=== PATIENT | female | born 1950 | race Caucasian/White ===

== ENCOUNTER 2017-02-11 12:42 | Emergency (ER) | payer OTHER ==
[~2017-02-11] VITALS: Ht 157.5 cm; Wt 68.2 kg
--- NOTE | 2017-02-11 12:56 | ERD ---
ER Documentation Chief Complaint Chief Complaint Dizziness HPI The patient is a 66-year-old female, presenting to the ER because of acute near syncopal episode while she was running on a treadmill for approximately 15 minutes. Today is the first day that she went to the gym, she has been fasting today. She denies syncope, neck pain, chest pain, Chest pain with exertion/ vomiting/diaphoresis, dyspnea, abdominal pain, vomiting, dysuria, diarrhea. She does not smoke nor drink. She arrived to the ER for possible STEMI. She was treated with aspirin 150 mg p.o. by EMS Past medical history: Dyslipidemia Past surgical history: None ROS All systems reviewed and are negative except as per history of present illness. Allergies Allergies: Coded Allergies: No Known Allergy (Unverified , 02/11/17) Physical Exam Vitals Vital Signs Date Time Temp Pulse Resp B/P Pulse Ox O2 Delivery O2 Flow Rate FiO2 02/11/17 12:59 97.6 67 12 118/69 97 Physical Exam Const: No acute distress. Head: Atraumatic. Eyes: Normal Conjunctiva. ENT: Normal External Ears, Nose and Mouth. Neck: Full range of motion. No meningismus. Resp: Clear to auscultation bilaterally. Cardio: Regular rate and rhythm. Abd: Soft, non distended, normal bowel sounds, non tender. Skin: No petechiae or rashes. Back: No midline or flank tenderness. Ext: No cyanosis, or edema. Neur: Awake and alert. No focal deficit Psych: Normal Mood and Affect. Result Diagram: 02/11/17 1253 02/11/17 1253 Results 24 hrs Laboratory Tests Test 02/11/17 12:53 02/11/17 13:04 White Blood Count 6.410^3/ul Red Blood Count 4.0210^6/ul Hemoglobin 12.4g/dl Hematocrit 37.3% Mean Corpuscular Volume 92.8fl Mean Corpuscular Hemoglobin 30.8pg Mean Corpuscular Hemoglobin Concent 33.2g/dl Red Cell Distribution Width 12.8% Platelet Count 76033^3/UL Mean Platelet Volume 11.1fl Neutrophils % 51.5% Lymphocytes % 38.5% Monocytes % 7.1% Eosinophils % 1.9% Basophils % 0.8% Nucleated Red Blood Cells % 0.0/100WBC Neutrophils # 3.310^3/ul Lymphocytes # 2.510^3/ul Monocytes # 0.510^3/ul Eosinophils # 0.110^3/ul Basophils # 0.110^3/ul Nucleated Red Blood Cells # 0.010^3/ul Sodium Level 141mmol/L Potassium Level 4.3mmol/L Chloride Level 103mmol/L Carbon Dioxide Level 24mmol/L Anion Gap 18 Blood Urea Nitrogen 22mg/dl Creatinine 0.93mg/dl Glucose Level 123mg/dl Calcium Level 9.6mg/dl Troponin I < 0.012ng/ml Bedside Glucose 103mg/dL Current Medications Medications (Trade) Dose Ordered Sig/Pura Route PRN Reason Start Time Stop Time Status Last Admin Dose Admin Sodium Chloride (NS) 1,000 ml @ 1,000 mls/hr Q1H ONCE IV 02/11/17 13:00 02/11/17 13:59 DC 02/11/17 12:59 Procedures/MDM EKG: At 12:46 PM Read by emergency physician Rate/Rhythm: Normal Sinus Rhythm 68 beats/min QRS, ST, T-waves: No ST elevation, no T inversion Impression: Normal EKG EKG: At 2:13 PM Read by emergency physician Rate/Rhythm: Normal Sinus Rhythm 60 beats/min QRS, ST, T-waves: No ST elevation, no T inversion Impression: Normal EKG [place] [id number] Radiology Main Line: [phone] DIAGNOSTIC IMAGING REPORT Patient: BETY MARTIN : 1950 Age: 66 Sex: F [id number] DOS: 02/11/17 1249 Ordering MD: SHELLEY BAUGH MD Location: E/R Room/Bed: PROCEDURE: XR Chest. CLINICAL INDICATION: Chest pain TECHNIQUE: AP Portable chest. COMPARISON: None available FINDINGS: The soft tissues and bones are normal. No focal infiltrates, masses, or effusions are noted. The mediastinum and heart are remarkable for mild vascular calcifications of the thoracic aorta and normal size heart. No pneumothorax is present. IMPRESSION: 1. No radiographic evidence for acute cardiopulmonary disease. 2. Mild atherosclerotic vascular disease RPTAT: HDC .Stephanie Barakat MD, MD Date Time Electronically viewed and signed by .Stephanie Barakat MD, MD on 02/11/2017 14: 07 .C/ CC: SHELLEY BAUGH MD MEDICAL MAKING DECISION: The patient is a 76-year-old female, presenting with acute dizziness most likely due to acute dehydration and acute fasting. She was treated with 1 L normal saline for acute dehydration with good response. On multiple reevaluation, she felt well, denies any symptoms. The differential diagnoses considered include but are not limited to dehydration , TIA, electrolyte imbalance,central causes such as cerebellar infarct, cerebellar hemorrhage, cerebellar tumor, acoustic neuroma, peripheral causes such as benign positional vertigo, labyrinthitis, medication, Meniere's disease. Departure Diagnosis: Primary Impression: Dizziness Additional Impression: Dehydration Condition: Good Comments I discussed the findings with the patient. I advised the patient to follow-up with the primary physician in about 1-2 days, sooner if needed and return if any concern. Disclaimer: Inadvertent spelling and grammatical errors are likely due to EHR/ dictation software use and do not reflect on the overall quality of patient care. Also, please note that the electronic time recorded on this note does not necessarily reflect the actual time of the patient encounter. SHELLEY BAUGH MD Feb 11, 2017 12:56
[2017-02-11 12:59] VITALS: Ht 157.5 cm; Wt 68.2 kg
[2017-02-11] MEDS ORDERED: SOD CHLORIDE 0.9% 1,000 ML IV ONE (13:00)
[2017-02-11 13:04] LABS: BASOPHIL # 0.1 10^3/ul (0.0-0.1); BASOPHILS % 0.8 % (0.0-2.0); EOSINOPHILS # 0.1 10^3/ul (0.0-0.5); EOSINOPHILS % 1.9 % (0.0-7.0); HEMATOCRIT 37.3 % (37.0-47.0); HEMOGLOBIN 12.4 g/dl (12.0-16.0); LYMPHOCYTES # 2.5 10^3/ul (0.8-2.9); LYMPHOCYTES % 38.5 % (15.0-51.0); MEAN CORPUSCULAR HEMOGLOBIN 30.8 pg (29.0-33.0); MEAN CORPUSCULAR HGB CONC 33.2 g/dl (32.0-37.0); MEAN CORPUSCULAR VOLUME 92.8 fl (82.0-101.0); MEAN PLATELET VOLUME 11.1 fl (7.4-10.4); MONOCYTE # 0.5 10^3/ul (0.3-0.9); MONOCYTES % 7.1 % (0.0-11.0); NEUTROPHIL # 3.3 10^3/ul (1.6-7.5); NEUTROPHILS % 51.5 % (39.0-77.0); PLATELET COUNT 255 10^3/UL (140-415); RED BLOOD COUNT 4.02 10^6/ul (4.20-5.40); RED CELL DISTRIBUTION WIDTH 12.8 % (11.5-14.5); WHITE BLOOD COUNT 6.4 10^3/ul (4.8-10.8)
[2017-02-11 13:24] LABS: ANION GAP 18 (8-16); BLOOD UREA NITROGEN 22 mg/dl (7-20); CALCIUM 9.6 mg/dl (8.4-10.2); CARBON DIOXIDE 24 mmol/L (21-31); CHLORIDE 103 mmol/L (97-110); CREATININE 0.93 mg/dl (0.44-1.00); GLUCOSE 123 mg/dl (70-220); POTASSIUM 4.3 mmol/L (3.5-5.1); SODIUM 141 mmol/L (135-144)
[2017-02-11 13:43] LABS: TROPONIN-I < 0.012 ng/ml (0.00-0.12)
--- NOTE | 2017-02-11 14:08 | RADRPT ---
PROCEDURE: XR Chest. CLINICAL INDICATION: Chest pain TECHNIQUE: AP Portable chest. COMPARISON: None available FINDINGS: The soft tissues and bones are normal. No focal infiltrates, masses, or effusions are noted. The m ediastinum and heart are remarkable for mild vascular calcifications of the thoracic aorta and oksana l size heart. No pneumothorax is present. IMPRESSION: 1. No radiographic evidence for acute cardiopulmonary disease. 2. Mild atherosclerotic vascular disease RPTAT: HD .Stephanie Barakat MD, Date Time Electronically viewed and signed by .Stephanie Barakat MD, MD on 02/11/2017 14:07 .C/
[2017-02-11 14:30] VITALS: BP 120/71; PULSE 68; RESP 16; TEMP 97.8
== END 2017-02-11 14:32 | disposition home or self-care (01) ==
LOC: E/R 12:42
DX: E86.0 Dehydration (principal); R40.2142 Coma scale, eyes open, spontaneous, at arrival to emergency department; R40.2252 Coma scale, best verbal response, oriented, at arrival to emergency department; R40.2362 Coma scale, best motor response, obeys commands, at arrival to emergency department
CPT/HCPCS: 36415; 71010; 80048; 82962; 84484; 85025; J7030; Z7502